=== PATIENT | female | born 1980 | race Caucasian/White ===

== ENCOUNTER 2020-04-21 20:24 | Emergency (ER) | payer OTHER ==
[~2020-04-21] VITALS: Ht 165.1 cm; Wt 127.7 kg
[2020-04-21 21:18] VITALS: BP 136/72
[2020-04-21] MEDS ORDERED: orphenadrine citrate 60mg/2ml inj. IM ONE (21:40)
[2020-04-21] MEDS ORDERED: HYDROcodone/acetaminophen 5mg/325mg tablet PO ONE (21:40)
[2020-04-21] MEDS ORDERED: ketorolac trometh inj. 60 MG/2 ML VIAL IM ONE (21:40)
[2020-04-21] MEDS ORDERED: ORPH100T2 PO (21:44)
[2020-04-21] MEDS ORDERED: NAPR-56 PO (21:44)
[2020-04-21] MEDS ORDERED: HYDR-4383 PO (21:44)
== END 2020-04-21 21:54 | disposition home or self-care (01) ==
LOC: ER 20:24
DX: S39.012A Strain of muscle, fascia and tendon of lower back, initial encounter (principal); R51 Headache; Z88.0 Allergy status to penicillin; Z79.899 Other long term (current) drug therapy; V99.XXXA Unspecified transport accident, initial encounter; Y93.89 Activity, other specified; Y92.410 Unspecified street and highway as the place of occurrence of the external cause; Y99.8 Other external cause status
CPT/HCPCS: 72110; 96372; 99283; J2360

== ENCOUNTER 2021-05-31 17:55 | Emergency (ER) | payer MEDICAID ==
[~2021-05-31] VITALS: Ht 165.1 cm; Wt 113.6 kg
[~2021-05-31 17:55] MED LIST: HYDR-4383 PO; ORPH100T2 PO
[2021-05-31 18:21] VITALS: BP 125/81
[2021-05-31] MEDS ORDERED: proparacaine 0.5% ophthalmic drops 15ml EACHEYE ONE (18:55)
[2021-05-31] MEDS ORDERED: erythromycin ophthalmic ointment 1gm tube LEFTEYE ONE (19:05)
== END 2021-05-31 19:19 | disposition home or self-care (01) ==
LOC: ER 17:56
DX: S05.02XA Injury of conjunctiva and corneal abrasion without foreign body, left eye, initial encounter (principal); H57.89 Other specified disorders of eye and adnexa; G43.909 Migraine, unspecified, not intractable, without status migrainosus; Z88.0 Allergy status to penicillin; Z79.899 Other long term (current) drug therapy; X58.XXXA Exposure to other specified factors, initial encounter; Y93.89 Activity, other specified; Y92.89 Other specified places as the place of occurrence of the external cause; Y99.8 Other external cause status
CPT/HCPCS: 99283

== ENCOUNTER 2024-01-27 11:50 | Emergency (ER) | payer MEDICAID ==
[~2024-01-27] VITALS: Ht 165.1 cm; Wt 125.9 kg
[~2024-01-27 11:50] MED LIST changes: -ORPH100T2 PO; +ORPH100T4 PO
[2024-01-27 12:47] LABS: BASOPHILS % (AUTO) 0.6 % (0-1); EOSINOPHILS # (AUTO) 0.1 X10'3 (0-0.9); EOSINOPHILS % (AUTO) 1.6 % (0-6); HEMATOCRIT 41.5 % (35.0-45.0); HEMOGLOBIN 14.3 g/dl (12.0-16.0); LYMPHOCYTES # (AUTO) 1.8 X10'3 (1.1-4.8); LYMPHOCYTES % (AUTO) 27.4 % (21-51); MEAN CORPUSCULAR HEMOGLOBIN 30.9 PG (27.0-31.0); MEAN CORPUSCULAR HGB CONC 34.6 g/dL (33.0-36.5); MEAN CORPUSCULAR VOLUME 89.3 FL (78-98); MEAN PLATELET VOLUME 8.5 FL (7.4-10.4); MONOCYTES # (AUTO) 0.5 X10'3 (0-0.9); MONOCYTES % (AUTO) 7.5 % (2-12); NEUTROPHILS % (AUTO) 62.9 % (42-75); PLATELET COUNT 257 X10'3 (140-440); RED BLOOD COUNT 4.65 X10'6 (4.20-5.60); RED CELL DISTRIBUTION WIDTH 13.4 % (11.5-14.5); WHITE BLOOD COUNT 6.4 X10'3 (4.5-11.0)
[2024-01-27 13:01] LABS: ALANINE AMINOTRANSFERASE 23 U/L (12-78); ALBUMIN 3.6 G/DL (3.4-5.0); ALBUMIN/GLOBULIN RATIO 0.8 (1.1-1.5); ALKALINE PHOSPHATASE 56 IU/L (46-116); ANION GAP 9 (8-16); ASPARTATE AMINO TRANSFERASE 16 U/L (10-37); BILIRUBIN,TOTAL 0.5 MG/DL (0.1-1.0); BLOOD UREA NITROGEN 18 MG/DL (7-18); BUN/CREATININE RATIO 23.4 (10.0-20.0); CALCIUM 8.8 MG/DL (8.5-10.1); CHLORIDE 106 MMOL/L (99-107); CREATININE 0.77 MG/DL (0.40-0.90); GLUCOSE 96 MG/DL (70-104); LIPASE 71 U/L (16-77); POTASSIUM 3.7 MMOL/L (3.5-5.1); SODIUM 142 MMOL/L (135-145); eCRCL 82 ML/MIN; eGFR 82 ML/MIN
[2024-01-27] MEDS ORDERED: BUSP10TA3 (15:48)
[2024-01-27] MEDS ORDERED: VENL37.589 PO (15:48)
[2024-01-27] MEDS ORDERED: ONDA4TAB12 (15:48)
[2024-01-27] MEDS ORDERED: SUMA50TA17 (15:48)
[2024-01-27] MEDS ORDERED: LIDO700A47 TOP (15:48)
[2024-01-27] MEDS ORDERED: UBRO100T (15:48)
[2024-01-27] MEDS ORDERED: TRAN650T5 (15:48)
[2024-01-27] MEDS: ondansetron/PF 4mg/2ml inj IV ONE (16:05)
[2024-01-27] MEDS: normal saline 1000ml 1,000 ML IV ONE (16:06)
[2024-01-27] MEDS: morphine 4 MG/ML inj SYRINge IV ONE (16:07)
[2024-01-27 17:44] LABS: BILIRUBIN,URINE NEGATIVE (Neg); CLARITY,URINE CLEAR (Clear); COLOR,URINE YELLOW (Yellow); GLUCOSE, URINE NEGATIVE (Neg); KETONES,URINE NEGATIVE (Neg); LEUKOCYTE ESTERASE ,URINE NEGATIVE (Neg); NITRITES, URINE NEGATIVE (Neg); OCCULT BLOOD,URINE NEGATIVE (Neg); PH,URINE 7.5 (4.8-8.0); PROTEIN,URINE NEGATIVE (Neg); URINE HCG NEGATIVE (NEG); UROBILINOGEN,URINE 0.2 E.U/dL (0.2-1.0)
[2024-01-27 17:45] LABS: HCG SERUM QL NEGATIVE
[2024-01-27 17:48] LABS: UA COLLECTION TYPE CLN CATCH MIDSTREAM
[2024-01-27 19:21] VITALS: BP 109/61; PULSE 71; RESP 18; TEMP 98.4; O2SAT 99
== END 2024-01-27 19:35 | disposition home or self-care (01) ==
LOC: ER 11:50
DX: G89.29 Other chronic pain (principal); R10.11 Right upper quadrant pain; R11.2 Nausea with vomiting, unspecified; Z88.8 Allergy status to other drugs, medicaments and biological substances; Z79.899 Other long term (current) drug therapy; Z91.040 Latex allergy status; Z88.0 Allergy status to penicillin
CPT/HCPCS: 36415; 74176; 80053; 81003; 81025; 83690; 84703; 85025; 96361; 96374; 96375; 99285; J2270; J2405; J7030

== ENCOUNTER 2024-03-21 13:50 | Outpatient (CLI) | payer MEDICAID ==
[~2024-03-21 13:50] MED LIST changes: +BUSP10TA3; +LIDO700A47 TOP; +ONDA4TAB12; +SUMA50TA17; +TRAN650T5; +UBRO100T; +VENL37.589 PO
== END 2024-03-21 23:59 | disposition home or self-care (01) ==
LOC: RAD 13:50
PROVIDERS: ATTEND Nurse Practitioner Family
DX: M25.511 Pain in right shoulder (principal)
CPT/HCPCS: 73000